=== PATIENT | male | born 1995 | race Caucasian/White ===

== ENCOUNTER 2018-11-05 14:52 | Emergency (ER) | payer SELFPAY ==
[~2018-11-05] VITALS: Ht 175.3 cm; Wt 97.0 kg
[2018-11-05 16:50] VITALS: BP 125/86
== END 2018-11-05 20:55 | disposition left against medical advice (07) ==
LOC: ER 14:52
DX: Z53.21 Procedure and treatment not carried out due to patient leaving prior to being seen by health care provider (principal)

== ENCOUNTER 2018-11-07 06:02 | Emergency (ER) | payer SELFPAY ==
[~2018-11-07] VITALS: Ht 175.3 cm; Wt 98.0 kg
[2018-11-07 06:27] VITALS: BP 135/82
== END 2018-11-07 11:25 | disposition left against medical advice (07) ==
LOC: ER 06:02
DX: Z53.21 Procedure and treatment not carried out due to patient leaving prior to being seen by health care provider (principal); Z98.890 Other specified postprocedural states
CPT/HCPCS: 93005